=== PATIENT | female | born 1975 | race Caucasian/White ===

== ENCOUNTER 2023-05-06 13:47 | Emergency (ER) | payer OTHER ==
[~2023-05-06] VITALS: Ht 177.8 cm; Wt 61.2 kg
[2023-05-06] MEDS ORDERED: ACET500 PO (16:31)
[2023-05-06] MEDS ORDERED: IBUP600 PO (16:31)
[2023-05-06] MEDS ORDERED: OXAYDO5 M1 PO (16:31)
[2023-05-06 18:18] VITALS: BP 103/66
== END 2023-05-06 18:16 | disposition home or self-care (01) ==
LOC: ER 13:47
DX: S52.501A Unspecified fracture of the lower end of right radius, initial encounter for closed fracture (principal); V87.8XXA Person injured in other specified noncollision transport accidents involving motor vehicle (traffic), initial encounter
CPT/HCPCS: 25605; 73100; 73110; 76000; 99152; 99153; 99283-25; A9270; J2704; J3010; J7120